=== PATIENT | male | born 1965 | race Native Hawaiian/Other Pacific Islander ===

== ENCOUNTER 2019-09-15 20:49 | Inpatient (IN) | payer OTHER ==
[~2019-09-15] VITALS: Ht 175.3 cm; Wt 100.8 kg
[2019-09-15 20:58] VITALS: BP 133/87; TEMP 100.3
[2019-09-15 21:37] LABS: PLATELET COUNT 294 K/uL (142-355); POTASSIUM 3.3 mmol/L (3.6-5.2)
[2019-09-15 23:43] VITALS: BP 110/74; TEMP 98.9
[2019-09-16] VITALS (7 sets, daily range): BP systolic 113–161; BP diastolic 73–100; TEMP 97.9–99.4; Ht 175.3 cm; Wt 100.8 kg
[2019-09-17 04:00] VITALS: BP 126/79; TEMP 97.5
[2019-09-17 05:54] LABS: PLATELET COUNT 233 K/uL (142-355)
[2019-09-17 08:00] VITALS: BP 139/75; TEMP 98.2
[2019-09-17 12:30] VITALS: BP 126/73; TEMP 98.4
== END 2019-09-17 17:19 | disposition home or self-care (01) | DRG 864 ==
LOC: ED 20:49 → MED/SURG 23:12
PROVIDERS: Internal Medicine; ADMIT Hospitalist
DX: R50.9 Fever, unspecified (principal); N17.9 Acute kidney failure, unspecified; E87.6 Hypokalemia; I10 Essential (primary) hypertension; K21.9 Gastro-esophageal reflux disease without esophagitis; M15.8 Other polyosteoarthritis; E86.0 Dehydration; Z03.818 Encounter for observation for suspected exposure to other biological agents ruled out; R05 Cough; R06.09 Other forms of dyspnea; R19.7 Diarrhea, unspecified
CPT/HCPCS: 36415; 80048; 83605; 83735; 85027; 87040; 87502; 87635; 87651; 90658; 96360; 96365; 96375; 99284; J1100; J1200; J1650; J1885; J1956; J2405; J2550; U00003